=== PATIENT | female | born 1980 | race Hispanic/Latino ===

== ENCOUNTER 2019-08-05 20:24 | Emergency (ER) | payer OTHER ==
[2019-08-05 20:50] LABS: APPEARANCE,URINE CLOUDY (CLEAR); BILIRUBIN,URINE NEGATIVE (NEGATIVE); GLUCOSE, URINE (UA) >=1000 mg/dL (NEGATIVE); KETONES,URINE 5 mg/dL (NEGATIVE); LEUKOCYTE ESTERASE ,URINE NEGATIVE (NEGATIVE); NITRATE,URINE POSITIVE (NEGATIVE); OCCULT BLOOD,URINE LARGE (NEGATIVE); PH,URINE 6.5 (5.0-8.0); PROTEIN,URINE 100 mg/dL (NEGATIVE)
[2019-08-05 21:01] LABS: COLOR,URINE RED (YELLOW)
[2019-08-05 21:03] LABS: RBC,URINE Full Field /HPF (0-1)
[2019-08-05 21:04] LABS: BACTERIA,URINE Few /HPF (None Seen); SQUAMOUS EPITHELIAL CELL,UR 0-2 /HPF (0-2)
[2019-08-05 21:23] LABS: BASOPHILS % (AUTO) 0.4 % (0.0-5.0); EOSINOPHILS % (AUTO) 2.2 % (0.0-8.0); HEMATOCRIT 37.2 % (36-48); LYMPHOCYTES % (AUTO) 31.4 % (21.0-51.0); MEAN CORPUSCULAR HEMOGLOBIN 28.4 pg (27.0-33.0); MEAN CORPUSCULAR HGB CONC 33.3 g/dL (32.0-36.0); MEAN CORPUSCULAR VOLUME 85.1 fL (79-99); MONOCYTES % (AUTO) 5.2 % (3.0-13.0); NEUTROPHILS % (AUTO) 60.5 % (40.0-77.0); PLATELET COUNT (AUTO) 242 K/uL (130-400); RED BLOOD CELL COUNT(AUTO) 4.37 MIL/uL (4.00-5.50); RED CELL DISTRIBUTION WIDTH 13.3 % (11.0-15.5); WHITE BLOOD COUNT (AUTO) 9.1 K/uL (4.8-10.8)
[2019-08-05 21:35] LABS: POTASSIUM 3.7 mmol/L (3.5-5.1)
[2019-08-05 21:40] LABS: ALBUMIN 3.4 g/dL (3.5-5.0); BILIRUBIN,TOTAL 0.3 mg/dL (0.2-1.0); TOTAL PROTEIN, SERUM 6.7 g/dL (6.0-8.3)
[2019-08-05] MEDS ORDERED: ONDANSETRON HCL 4 MG/2 ML VIAL ONE (22:51)
[2019-08-05] MEDS ORDERED: KETOROLAC TROMETHAMINE 30MG/ML ONE (22:51)
[2019-08-05] MEDS ORDERED: NITROFURANTOIN MONOHYD/M-CRYST 100 MG CAPSULE PO ONE (22:51)
[2019-08-05] MEDS ORDERED: MORPHINE SULFATE 4 MG/1ML SYG ONE (23:41)
[2019-08-06] MEDS ORDERED: MORPHINE SULFATE 4 MG/1ML SYG ONE (00:15)
== END 2019-08-06 00:41 | disposition home or self-care (01) ==
LOC: EDH 20:24
DX: D25.9 Leiomyoma of uterus, unspecified (principal); N93.8 Other specified abnormal uterine and vaginal bleeding; N39.0 Urinary tract infection, site not specified; Z90.49 Acquired absence of other specified parts of digestive tract; Z88.0 Allergy status to penicillin
CPT/HCPCS: 36415; 76856; 80053; 81001; 81025; 85025; 87088; 96374; 96375; 99284; J1885; J2405; J2270

== ENCOUNTER 2019-08-21 14:00 | Inpatient (IN) | payer OTHER ==
[~2019-08-21] VITALS: Ht 157.5 cm; Wt 247.0 kg
[2019-08-21 15:10] LABS: BASOPHILS % (AUTO) 0.4 % (0.0-5.0); HEMATOCRIT 33.7 % (36-48); LYMPHOCYTES % (AUTO) 29.9 % (21.0-51.0); MEAN CORPUSCULAR HEMOGLOBIN 27.7 pg (27.0-33.0); MEAN CORPUSCULAR VOLUME 86.4 fL (79-99); MONOCYTES % (AUTO) 4.3 % (3.0-13.0); NEUTROPHILS % (AUTO) 63.2 % (40.0-77.0); PLATELET COUNT (AUTO) 309 K/uL (130-400); RED CELL DISTRIBUTION WIDTH 14.1 % (11.0-15.5); WHITE BLOOD COUNT (AUTO) 9.7 K/uL (4.8-10.8)
[2019-08-23 11:21] VITALS: BP 144/85
[2019-08-26] MEDS ORDERED: ACET-66 PO (13:14)
[2019-08-26] MEDS ORDERED: MINASTRIN PO (13:14)
[2019-08-27] VITALS (23 sets, daily range): BP systolic 115–151; BP diastolic 63–86
[2019-08-27] MEDS ORDERED: CALDOLOR 800MG+NS 250ML 250 ML IV SCH (06:00)
[2019-08-27] MEDS ORDERED: CEFAZOLIN 3GM /D5W 100ML 100 ML IV SCH (06:00)
[2019-08-27] MEDS ORDERED: CEFAZOLIN SODIUM 1 GM VIAL ONE (07:27)
[2019-08-27] MEDS ORDERED: DURAMORPH PF1 MG/ML 10ML AMP IV ONE (07:41)
[2019-08-27] MEDS: LACTATED RINGERS 1000ML 1,000 ML IV SCH ×2 (07:44→13:45)
[2019-08-27] MEDS ORDERED: MIDAZOLAM HCL 1 MG/ML 2ML VIAL ONE (07:46)
[2019-08-27] MEDS ORDERED: PROPOFOL 10 MG/ML 20ML VIAL IV ONE (07:47)
[2019-08-27] MEDS ORDERED: LIDOCAINE PF 2% 5ML ABBOJECT ONE (07:47)
[2019-08-27] MEDS ORDERED: SUCCINYLCHOLINE CHLORIDE 20 MG/ML 10 ML VIAL ONE (07:47)
[2019-08-27] MEDS ORDERED: ROCURONIUM 10MG/1ML SYR 10 MG/ML ML ONE ×3 (07:51→12:01)
[2019-08-27] MEDS ORDERED: DEXAMETHASONE SOD PHOSPHATE 10MG/ML 1ML VIAL ONE (08:32)
[2019-08-27] MEDS ORDERED: ALBUMIN (HUMAN) 5% 250 ML IV ONE ×3 (09:47→10:20)
[2019-08-27 10:16] LABS: ABG HCO3 21.7 mmol/L (21.0-28.0); ABG OXYGEN SATURATION 98.8 % (95.0-99.0); ABG PCO2 43 mmHg (32-45)
[2019-08-27] MEDS ORDERED: SODIUM BICARB 8.4% 50ML SYRINGE ONE ×2 (10:36→12:49)
[2019-08-27] MEDS ORDERED: FENTANYL CITRATE PF 50 MCG/1 ML 2ML VIAL ONE (12:04)
[2019-08-27] MEDS ORDERED: METRONIDAZOLE 500MG/100ML BAG 100 ML ONE (12:14)
[2019-08-27] MEDS ORDERED: LEVOFLOXACIN 500 MG/D5W 100 ML 100 ML ONE (12:15)
[2019-08-27] MEDS ORDERED: HETASTARCH IN 0.9 % NACL 500 ML IV ONE (12:16)
[2019-08-27] MEDS ORDERED: GLYCOPYRROLATE 1 MG/5 ML SYRINGE ONE (12:42)
[2019-08-27 12:43] LABS: ABG BASE EXCESS -6.9 mmol/L (-2.0-3.0); ABG HCO3 19.8 mmol/L (21.0-28.0); ABG OXYGEN SATURATION 96.6 % (95.0-99.0); ABG PCO2 45 mmHg (32-45)
[2019-08-27] MEDS ORDERED: NEOSTIGMINE 5MG/5ML SYR IV ONE (12:43)
[2019-08-27] MEDS ORDERED: SODIUM BICARB [NEONATAL] 4.2% 10ML SYG ONE (12:47)
[2019-08-27] MEDS ORDERED: SODIUM BICARB 50MEQ 50ML VIAL ONE (12:54)
[2019-08-27] MEDS ORDERED: PROMETHAZINE HCL 25 MG/ML 1ML AMPULE IM PRN ×2 (13:30)
[2019-08-27] MEDS ORDERED: ACETAMINOPHEN-CODEINE 300/30MG TAB PO PRN (13:30)
[2019-08-27] MEDS ORDERED: MEPERIDINE-PF 75 MG/ML SYG IM PRN (13:30)
[2019-08-27] MEDS ORDERED: FUROSEMIDE 10 MG/ML 4ML VIAL ONE (13:42)
[2019-08-27] MEDS ORDERED: ONDANSETRON HCL 4 MG/2 ML VIAL ONE ×2 (13:42→14:12)
[2019-08-27] MEDS ORDERED: METRONIDAZOLE 500MG/100ML BAG 100 ML IV SCH (14:00)
--- NOTE | 2019-08-27 14:20 | NUR ---
REPORT RECEIVED FROM JAYLEN MONTGOMERY PACU.
--- NOTE | 2019-08-27 14:45 | NUR ---
PATIENT ARRIVED TO UNIT VIA BED FROM PACU. PATIENT ALERT AND ORIENTED. NAME AND VERIFIED. NO PAIN REPORTED AT THIS TIME. OUSMANE DRESSING ASSESSED WITH JAYLEN MONTGOMERY AT BEDSIDE. DRESSING IS DRY AND INTACT. LEON CATHETER PATENT AND DRAINING PALE YELLOW URINE. CALL LIGHT LEFT IN REACH. ADVISED PATIENT TO CALL WITH ANY NEEDS OR CONCERNS.
--- NOTE | 2019-08-27 14:50 | NUR ---
MEDICATION ADDED STICKER SEEN ON TUBING OF LR THAT CAME WITH PATIENT FROM PACU. VALENTINARN WAS CALLED TO QUESTION IF ANY MEDS WERE ADDED AND HE STATED NO MEDICATIONS WERE ADDED.
--- NOTE | 2019-08-27 14:55 | NUR ---
OPERATIVE NOTE VIEWED AT THIS TIME. NOTED GEN. CONSULT FOR POSSIBLE PERFORATED BOWEL. NO MENTION OF PERFORATED BOWEL DURING REPORT.
[2019-08-27] MEDS: DEXTROSE 5 %-0.45 % NACL 1,000 ML IV PRN ×2 (14:58→21:34)
[2019-08-27] MEDS ORDERED: LEVOFLOXACIN 500 MG/D5W 100 ML 100 ML IV ONE (15:00)
--- NOTE | 2019-08-27 15:30 | NUR ---
SPOKE WITH DR. JEREZ TO CLARIFY ON GENERAL SURGEON CONSULT. DR. JEREZ STATES CONSULT WAS DONE DURING PROCEDURE. NO FURTHER ORDERS RECEIVED.
[2019-08-27] MEDS ORDERED: MEPERIDINE-PF 25 MG/ML SYG IM PRN ×2 (19:30→19:45)
[2019-08-27] MEDS ORDERED: MEPERIDINE-PF 50 MG/ML SYG IM PRN (19:30)
[2019-08-27] MEDS: METRONIDAZOLE 500MG/100ML BAG 100 ML IV SCH ×2 (20:00→21:33)
[2019-08-28 03:43] VITALS: BP 108/69
--- NOTE | 2019-08-28 05:50 | NUR ---
PT. DANGLED AND STOOD AT BEDSIDE BY HOWARD (PCP ). WELL TOLERATED.
[2019-08-28] MEDS: METRONIDAZOLE 500MG/100ML BAG 100 ML IV SCH ×3 (06:00→21:44)
[2019-08-28] MEDS: DEXTROSE 5 %-0.45 % NACL 1,000 ML IV PRN ×2 (06:05→19:36)
[2019-08-28 06:43] VITALS: BP 112/65
[2019-08-28 11:30] LABS: BASOPHILS % (AUTO) 0.2 % (0.0-5.0); EOSINOPHILS % (AUTO) 0.3 % (0.0-8.0); HEMATOCRIT 22.6 % (36-48); LYMPHOCYTES % (AUTO) 31.4 % (21.0-51.0); MEAN CORPUSCULAR HEMOGLOBIN 27.7 pg (27.0-33.0); MEAN CORPUSCULAR HGB CONC 32.3 g/dL (32.0-36.0); MEAN CORPUSCULAR VOLUME 85.6 fL (79-99); MONOCYTES % (AUTO) 4.9 % (3.0-13.0); NEUTROPHILS % (AUTO) 62.9 % (40.0-77.0); PLATELET COUNT (AUTO) 147 K/uL (130-400); RED BLOOD CELL COUNT(AUTO) 2.64 MIL/uL (4.00-5.50); RED CELL DISTRIBUTION WIDTH 15.9 % (11.0-15.5); WHITE BLOOD COUNT (AUTO) 9.2 K/uL (4.8-10.8)
[2019-08-28 11:35] VITALS: BP 141/69
[2019-08-28] MEDS ORDERED: ACETAMINOPHEN-CODEINE 300/30MG TAB PO PRN (11:45)
[2019-08-28] MEDS: LEVOFLOXACIN 500 MG/D5W 100 ML 100 ML IV SCH (12:13)
[2019-08-28] MEDS ORDERED: ONDANSETRON HCL 4 MG/2 ML VIAL ONE (13:38)
[2019-08-28] MEDS ORDERED: ONDANSETRON HCL 4 MG/2 ML VIAL IVP PRN (13:45)
[2019-08-28 15:51] VITALS: BP 144/80
--- NOTE | 2019-08-28 16:30 | NUR ---
DR. JEREZ MADE AWARE OF PT'S TEMP OF 100.3. NO NEW ORDERS RECEIVED AT THIS TIME.
[2019-08-28] MEDS: IBUPROFEN 800 MG TAB PO PRN (17:02)
--- NOTE | 2019-08-28 20:10 | NUR ---
Patient, Patient cough up small like a pea size blood clot, Patient informed that we need to observe and tell the Doctor in the morning.
[2019-08-28 20:23] VITALS: BP 133/78
[2019-08-28] MEDS: DOCUSATE SODIUM 100 MG CAP PO PRN (21:44)
[2019-08-28 23:33] VITALS: BP 139/77
[2019-08-29] MEDS: IBUPROFEN 800 MG TAB PO PRN ×4 (00:16→20:58)
[2019-08-29 04:02] VITALS: BP 117/78
[2019-08-29] MEDS: METRONIDAZOLE 500MG/100ML BAG 100 ML IV SCH ×2 (06:25→13:49)
[2019-08-29 07:31] VITALS: BP 132/76
[2019-08-29 09:22] LABS: BASOPHILS % (AUTO) 0.4 % (0.0-5.0); EOSINOPHILS % (AUTO) 1.7 % (0.0-8.0); HEMATOCRIT 23.6 % (36-48); LYMPHOCYTES % (AUTO) 32.1 % (21.0-51.0); MEAN CORPUSCULAR HEMOGLOBIN 26.7 pg (27.0-33.0); MEAN CORPUSCULAR HGB CONC 31.4 g/dL (32.0-36.0); MEAN CORPUSCULAR VOLUME 85.2 fL (79-99); MONOCYTES % (AUTO) 5.3 % (3.0-13.0); NEUTROPHILS % (AUTO) 60.2 % (40.0-77.0); PLATELET COUNT (AUTO) 171 K/uL (130-400); RED BLOOD CELL COUNT(AUTO) 2.77 MIL/uL (4.00-5.50); RED CELL DISTRIBUTION WIDTH 15.9 % (11.0-15.5); WHITE BLOOD COUNT (AUTO) 7.8 K/uL (4.8-10.8)
[2019-08-29] MEDS: DOCUSATE SODIUM 100 MG CAP PO PRN ×2 (09:34→20:57)
[2019-08-29 11:27] VITALS: BP 129/92
[2019-08-29] MEDS: LEVOFLOXACIN 500 MG/D5W 100 ML 100 ML IV SCH (12:10)
[2019-08-29 16:13] VITALS: BP 128/78
--- NOTE | 2019-08-29 16:33 | NUR ---
DC PLAN VISITED WITH PATIENT. PATIENT LIVES WITH SPOUSE. INDEPENDENT ABLE TO PERFORM ADL'S. PATIENT HAS NO SERVICES OR DME'S. FEELS SAFE TO RETURN HOME. Addendum: 08/29/19 at 1636 by SHUN COTA RN CM Amended: Links added.
[2019-08-29 20:30] VITALS: BP 146/77
[2019-08-29] MEDS: METRONIDAZOLE 500 MG TABLET PO SCH (20:57)
[2019-08-29 23:00] VITALS: BP 140/76
[2019-08-30] MEDS: METRONIDAZOLE 500 MG TABLET PO SCH ×2 (04:06→13:53)
[2019-08-30 04:10] VITALS: BP 128/89
--- NOTE | 2019-08-30 07:15 | NUR ---
BEDSIDE REPORT RECEIVED FROM TITA WRIGHT AND PATIENT CARE TRANSFERED AT THIS TIME.
[2019-08-30 07:19] VITALS: BP 128/79
[2019-08-30] MEDS: DOCUSATE SODIUM 100 MG CAP PO PRN (08:44)
[2019-08-30] MEDS: IBUPROFEN 800 MG TAB PO PRN ×2 (08:45→13:53)
[2019-08-30] MEDS ORDERED: LEVOFLOXACIN 500 MG TABLET PO SCH (09:00)
--- NOTE | 2019-08-30 10:30 | NUR ---
DR. JEREZ ROUNDED AND DISCHARGED PATIENT TO HOME. WHEN INFORMED OF CARE OF OUSMANE DRAIN, SHE INDICATED TO OBTAIN ASSISTANCE FROM SOMEONE UNDERSTANDING CARE OF OUSMANE DRAIN. SHALA, CAR VARNISHER CALLED AND INDICATED SOMEONE FROM [facility] WOULD BE COMING TO ASSIST WITH CARE OF OUSMANE DRAIN.
--- NOTE | 2019-08-30 11:30 | NUR ---
JAYLEN SANDERS AND JAYLEN MOTLEY FROM THIRD CAME DOWN TO EXPLAIN TO PATIENT CARE OF OUSMANE DRAIN AND HOW TO DISCONNECT PUMP WHEN GOING TO TAKE SHOWER. PATIENT'S REQUESTED FOR PROCEDURE TO BE REPEATED TO HIM AND WAS DONE. INDICATED UNDERSTANDING CARE OF OUSMANE DRAIN.
--- NOTE | 2019-08-30 13:45 | NUR ---
DISCHARGE INSTRUCTIONS GIVEN AND HER FLAGYL WAS ADMINISTERED AND WAS MEDICATED WITH MOTRIN FOR PAIN OF 4. PATIENT IS STABLE AND DENIES ANY OTHER PROBLEMS.
--- NOTE | 2019-08-30 14:35 | NUR ---
PATIENT WAS TAKEN VIA W/C TO FAMILY VEHICLE AND WAS DISCHARGED TO HER SPOUSE. PATIENT IS STABLE AND DENIES ANY FURTHER PAIN.
== END 2019-08-30 14:35 | disposition home or self-care (01) | DRG 742 ==
LOC: DAHIP 08-27 05:58 → EDSTATUS 08-27 14:00 → WSH 08-27 14:45
PROC: 30233N1 Transfusion of Nonautologous Red Blood Cells into Peripheral Vein, Percutaneous Approach (ICD-10-PCS; 2019-08-27)
PROC: 0UT90ZZ Resection of Uterus, Open Approach (ICD-10-PCS; principal; 2019-08-27 08:15)
PROC: 0UT20ZZ Resection of Bilateral Ovaries, Open Approach (ICD-10-PCS; 2019-08-27 08:15)
PROC: 0UT70ZZ Resection of Bilateral Fallopian Tubes, Open Approach (ICD-10-PCS; 2019-08-27 08:15)
DX: D25.1 Intramural leiomyoma of uterus (principal); Z68.45 Body mass index [BMI] 70 or greater, adult; N92.0 Excessive and frequent menstruation with regular cycle; N73.6 Female pelvic peritoneal adhesions (postinfective); Z20.828 Contact with and (suspected) exposure to other viral communicable diseases; Z88.0 Allergy status to penicillin; E66.01 Morbid (severe) obesity due to excess calories
CPT/HCPCS: 36415; 82435; 82803; 82947; 83605; 84132; 84295; 84703; 85018; 85025; 86850; 86900; 86901; 86922; A4344; G0378; J0330; J0690; J1100; J1741; J1940; J1956; J2001; J2250; J2274; J2405; J2704; J2710; J3010; J3490; J7030; J7120; P9016; P9045